=== PATIENT | male | born 1980 | race Caucasian/White ===

== ENCOUNTER 2021-07-23 10:01 | Inpatient (IN) ==
[2021-07-23] MEDS ORDERED: Ipratropium/Albuterol Neb 3 ML IH ONE (10:06)
[2021-07-23] MEDS ORDERED: predniSONE 20 MG TABLET PO ONE (10:36)
[2021-07-23] MEDS ORDERED: Acetaminophen 325 MG TABLET PO ONE (10:36)
[2021-07-23 10:47] LABS: Basophils # 0.1 K/mcL (0.0-0.2); Basophils % 0.6 %; Hemoglobin 14.7 g/dL (12.9-16.9); Immature Granulocytes % 0.5 % (0-4); Lymphocytes # 1.4 K/mcL (0.6-4.6); Lymphocytes % 14.4 %; Mean Corpuscular Hemoglobin 29.4 pg (28.0-33.3); Monocytes # 1.1 K/mcL (0.0-1.3); Monocytes % 10.8 %; Neutrophils # 7.2 K/mcL (1.6-8.9); Platelet Count 227 K/mcL (140-400); Red Cell Distribution Width 13.9 % (11.5-14.5); Segmented Neutrophils % 73.7 %; White Blood Count 9.8 K/mcL (4.3-11.1)
[2021-07-23 11:09] LABS: Alanine Aminotransferase 30 Units/L (7-52); Albumin 3.8 g/dL (3.5-5.7); Albumin/Globulin Ratio 1.2 (1.1-2.2); Alkaline Phosphatase 50 Units/L (34-104); Aspartate Amino Transferase 40 Units/L (13-39); BUN/Creatinine Ratio 13 (6-26); Bilirubin,Direct 0.2 mg/dL (0.0-0.2); Bilirubin,Indirect 0.5 mg/dL (0.0-1.0); Bilirubin,Total 0.7 mg/dL (0.3-1.0); Blood Urea Nitrogen 11 mg/dL (6-20); Calcium 8.3 mg/dL (8.6-10.3); Carbon Dioxide 34 mEq/L (23-29); Chloride 96 mEq/L (98-107); Globulin 3.1 g/dL (2.4-3.5); Glucose 130 mg/dL (70-105); Osmolality,Calculated 281 (280-300); Potassium 3.7 mEq/L (3.5-5.1); Sodium 135 mEq/L (136-145); Total Protein 6.9 g/dL (6.4-8.9); eGFR For African Americans > 60 (> 60); eGFR For Non-African Americans > 60 (> 60)
[2021-07-23 11:10] LABS: VBG HCO3 33 mEq/L (21-27); VBG PCO2 68 mmHg (41-51); VBG PH 7.29 pH Units (7.32-7.42); VBG PO2 83 mmHg (25-50)
[2021-07-23] MEDS: 0.9 % Sodium Chloride 1,000 ML IVC SCH ×2 (11:10→13:14)
[2021-07-23 11:19] LABS: Troponin I 0.16 ng/mL (< 0.04)
[2021-07-23] MEDS ORDERED: *HR* Heparin 5,000 UNIT/ML VIAL IVP ONE (11:23)
[2021-07-23] MEDS ORDERED: Azithromycin 500 MG in 0.9 % Sodium Chloride 250 ML IVPB ONE (11:23)
[2021-07-23] MEDS ORDERED: *HR* Heparin 5,000 UNIT/ML VIAL IVP PRN (11:23)
[2021-07-23] MEDS ORDERED: cefTRIAXone 1,000 MG in 0.9 % Sodium Chloride Mini Bag 100 ML IVPB ONE (11:23)
[2021-07-23] MEDS: Heparin 25,000UNIT/250ML 1/2NS 25,000 UNIT/250 ML IV.SOLN IVC SCH (11:54)
[2021-07-23 11:56] LABS: Influenza A PCR Negative (Negative); Influenza B PCR Negative (Negative); Resp. Syncytial Virus PCR Negative (Negative); SARS-CoV-2 by PCR (In House) Negative (Negative)
[2021-07-23] MEDS ORDERED: Naloxone 0.4 MG/ML INJ IVP PRN (12:56)
[2021-07-23] MEDS ORDERED: *HR* HYDROcodone/Acet 5/325 mg TABLET PO PRN (13:02)
[2021-07-23] MEDS ORDERED: Ondansetron 4 MG/2 ML VIAL IVP PRN (13:02)
[2021-07-23] MEDS ORDERED: *HR* OxyCODONE Immed Rel 5 MG TABLET PO PRN (13:02)
[2021-07-23] MEDS ORDERED: Perflutren Lipid Microsphere 1.3 ML in 0.9 % Sodium Chloride 8.7 ML IVP PRN (13:08)
[2021-07-23] MEDS ORDERED: Ipratropium/Albuterol Neb 3 ML IH PRN (15:52)
[2021-07-23 16:24] LABS: Hematocrit 45.2 % (37.5-50.1); Hemoglobin 14.5 g/dL (12.9-16.9); Mean Corpuscular HGB Conc 32.1 g/dL (31.6-35.5); Mean Corpuscular Hemoglobin 29.7 pg (28.0-33.3); Mean Corpuscular Volume 92.6 fL (83.0-100.0); Mean Platelet Volume 10.2 fL (9.4-12.4); Platelet Count 198 K/mcL (140-400); Red Blood Count 4.88 M/mcL (4.19-5.50); Red Cell Distribution Width 13.8 % (11.5-14.5); White Blood Count 9.6 K/mcL (4.3-11.1)
[2021-07-23 16:32] LABS: Heparin anti-factor XA UFH 0.04 IU/mL (0.30-0.70); INR 1.2; Prothrombin Time 13.7 Seconds (9.4-12.1)
[2021-07-23] MEDS: levoFLOXacin 750 MG/150 ML 750 MG/150 ML BAG IVPB SCH (18:50)
[2021-07-23] MEDS: *HR* Heparin 5,000 UNIT/ML VIAL IVP PRN (23:15)
[2021-07-24 05:53] LABS: Basophils % 0.4 %; Eosinophils % 0.1 %; Hematocrit 45.6 % (37.5-50.1); Immature Granulocytes % 1.2 % (0-4); Lymphocytes # 1.9 K/mcL (0.6-4.6); Lymphocytes % 18.5 %; Mean Corpuscular HGB Conc 30.7 g/dL (31.6-35.5); Mean Corpuscular Hemoglobin 29.2 pg (28.0-33.3); Mean Corpuscular Volume 95.2 fL (83.0-100.0); Mean Platelet Volume 10.5 fL (9.4-12.4); Monocytes # 0.9 K/mcL (0.0-1.3); Monocytes % 8.5 %; Neutrophils # 7.2 K/mcL (1.6-8.9); Platelet Count 235 K/mcL (140-400); Red Blood Count 4.79 M/mcL (4.19-5.50); Red Cell Distribution Width 13.8 % (11.5-14.5); Segmented Neutrophils % 71.3 %; White Blood Count 10.1 K/mcL (4.3-11.1)
[2021-07-24 06:10] LABS: BUN/Creatinine Ratio 13 (6-26); Blood Urea Nitrogen 11 mg/dL (6-20); Calcium 8.5 mg/dL (8.6-10.3); Carbon Dioxide 39 mEq/L (23-29); Chloride 97 mEq/L (98-107); Glucose 111 mg/dL (70-105); Magnesium 2.2 mg/dL (1.6-2.6); Osmolality,Calculated 288 (280-300); Potassium 4.5 mEq/L (3.5-5.1); Sodium 139 mEq/L (136-145); eGFR For African Americans > 60 (> 60); eGFR For Non-African Americans > 60 (> 60)
[2021-07-24] MEDS ORDERED: Furosemide 40 MG/4 ML VIAL IVP ONE (08:16)
[2021-07-24] MEDS: Cholecalciferol (D-3) 1,000 UNIT (25MCG) TABLET PO SCH (08:36)
[2021-07-24] MEDS: ARIPiprazole 10 MG TABLET PO SCH (08:36)
[2021-07-24] MEDS: Metoprolol XL (24 HR) Succ 25 MG TAB.ER.24H PO SCH (08:36)
[2021-07-24] MEDS: hydrOXYzine pamoate 25 MG CAPSULE PO SCH (08:36)
[2021-07-24] MEDS: Acetaminophen 325 MG TABLET PO PRN (08:55)
[2021-07-24] MEDS: Ipratropium/Albuterol Neb 3 ML IH SCH ×4 (10:16→22:34)
[2021-07-24] MEDS: Budesonide Neb 0.5 MG/2 ML IH SCH ×2 (10:30→22:34)
[2021-07-24] MEDS: Heparin 25,000UNIT/250ML 1/2NS 25,000 UNIT/250 ML IV.SOLN IVC SCH ×2 (11:26→22:14)
[2021-07-24 12:02] LABS: Chol/HDL Ratio 3.8 (0-4.9)
[2021-07-24] MEDS: *HR* Heparin 5,000 UNIT/ML VIAL IVP PRN (12:28)
[2021-07-24] MEDS: Aspirin 81 MG TAB.CHEW PO SCH (12:28)
[2021-07-24 13:45] LABS: Adenovirus DETECTED (Not Detect); Bordetella Pertussis Not Detected (Not Detect); Chlamydophila pneumoniae Not Detected (Not Detect); Coronavirus 229E Not Detected (Not Detect); Coronavirus HKU1 Not Detected (Not Detect); Coronavirus NL63 Not Detected (Not Detect); Coronavirus OC43 Not Detected (Not Detect); Human Metapneumovirus Not Detected (Not Detect); Human Rhinovirus/Enterovirus Not Detected (Not Detect); Influenza A Subtype 2009 H1 Not Detected (Not Detect); Influenza B Not Detected (Not Detect); Mycoplasma pneumoniae Not Detected (Not Detect); Parainfluenza Virus 1 Not Detected (Not Detect); Parainfluenza Virus 2 Not Detected (Not Detect); Parainfluenza Virus 3 Not Detected (Not Detect); Parainfluenza Virus 4 Not Detected (Not Detect); Respiratory Syncytial Virus Not Detected (Not Detect); SARS-CoV-2 Not Detected (Not Detect)
[2021-07-24] MEDS: levoFLOXacin 750 MG/150 ML 750 MG/150 ML BAG IVPB SCH (20:09)
[2021-07-25] MEDS ORDERED: *HR* LORazepam 2 MG/ML VIAL IVP ONE (03:34)
[2021-07-25] MEDS ORDERED: Haloperidol Lactate 5 MG/ML VIAL IVP ONE (03:38)
[2021-07-25] MEDS: Ipratropium/Albuterol Neb 3 ML IH SCH ×4 (04:00→22:17)
[2021-07-25 04:10] LABS: Basophils # 0.1 K/mcL (0.0-0.2); Basophils % 0.7 %; Eosinophils % 0.4 %; Hematocrit 44.3 % (37.5-50.1); Hemoglobin 13.5 g/dL (12.9-16.9); Lymphocytes # 2.1 K/mcL (0.6-4.6); Lymphocytes % 28.4 %; Mean Corpuscular HGB Conc 30.5 g/dL (31.6-35.5); Mean Corpuscular Hemoglobin 29.2 pg (28.0-33.3); Mean Corpuscular Volume 95.9 fL (83.0-100.0); Mean Platelet Volume 10.3 fL (9.4-12.4); Monocytes # 0.8 K/mcL (0.0-1.3); Monocytes % 10.7 %; Neutrophils # 4.3 K/mcL (1.6-8.9); Platelet Count 256 K/mcL (140-400); Red Blood Count 4.62 M/mcL (4.19-5.50); Red Cell Distribution Width 14.1 % (11.5-14.5); Segmented Neutrophils % 58.8 %; White Blood Count 7.3 K/mcL (4.3-11.1)
[2021-07-25 04:38] LABS: BUN/Creatinine Ratio 17 (6-26); Blood Urea Nitrogen 13 mg/dL (6-20); Calcium 8.4 mg/dL (8.6-10.3); Carbon Dioxide 40 mEq/L (23-29); Chloride 93 mEq/L (98-107); Glucose 120 mg/dL (70-105); Magnesium 2.2 mg/dL (1.6-2.6); Osmolality,Calculated 285 (280-300); Potassium 4.2 mEq/L (3.5-5.1); Sodium 137 mEq/L (136-145); eGFR For African Americans > 60 (> 60); eGFR For Non-African Americans > 60 (> 60)
[2021-07-25] MEDS: ARIPiprazole 10 MG TABLET PO SCH (07:20)
[2021-07-25] MEDS: hydrOXYzine pamoate 25 MG CAPSULE PO SCH (07:21)
[2021-07-25] MEDS: Cholecalciferol (D-3) 1,000 UNIT (25MCG) TABLET PO SCH (07:21)
[2021-07-25] MEDS: Metoprolol XL (24 HR) Succ 25 MG TAB.ER.24H PO SCH (07:21)
[2021-07-25] MEDS: Aspirin 81 MG TAB.CHEW PO SCH (07:21)
[2021-07-25] MEDS: Acetaminophen 325 MG TABLET PO PRN (07:25)
[2021-07-25] MEDS: Heparin 25,000UNIT/250ML 1/2NS 25,000 UNIT/250 ML IV.SOLN IVC SCH (08:14)
[2021-07-25] MEDS: Furosemide 40 MG/4 ML VIAL IVP SCH (08:18)
[2021-07-25] MEDS: Budesonide Neb 0.5 MG/2 ML IH SCH ×2 (09:44→22:17)
[2021-07-25] MEDS: *HR* Enoxaparin 40 MG/0.4 ML SYRINGE SQ SCH (11:41)
[2021-07-25 12:35] LABS: VBG HCO3 42 mEq/L (21-27); VBG PCO2 96 mmHg (41-51); VBG PH 7.25 pH Units (7.32-7.42); VBG PO2 186 mmHg (25-50)
[2021-07-25] MEDS ORDERED: Dexmedetomidine HCl 400 MCG/100 ML MLS IVC ONE (13:42)
[2021-07-25] MEDS: Dexmedetomidine HCl 400 MCG/100 ML MLS IVC SCH ×2 (13:54→21:47)
[2021-07-25] MEDS: Pantoprazole 40 MG VIAL IVP SCH (15:18)
[2021-07-25] MEDS: levoFLOXacin 750 MG/150 ML 750 MG/150 ML BAG IVPB SCH (17:13)
[2021-07-26] MEDS: Ipratropium/Albuterol Neb 3 ML IH SCH ×4 (04:07→22:24)
[2021-07-26 04:35] LABS: Basophils # 0.1 K/mcL (0.0-0.2); Basophils % 0.7 %; Eosinophils % 0.1 %; Hematocrit 43.7 % (37.5-50.1); Hemoglobin 13.8 g/dL (12.9-16.9); Immature Granulocytes % 0.9 % (0-4); Lymphocytes # 1.9 K/mcL (0.6-4.6); Lymphocytes % 27.2 %; Mean Corpuscular HGB Conc 31.6 g/dL (31.6-35.5); Mean Corpuscular Hemoglobin 29.7 pg (28.0-33.3); Mean Corpuscular Volume 94.2 fL (83.0-100.0); Mean Platelet Volume 10.3 fL (9.4-12.4); Monocytes # 0.6 K/mcL (0.0-1.3); Platelet Count 279 K/mcL (140-400); Red Blood Count 4.64 M/mcL (4.19-5.50); Red Cell Distribution Width 13.5 % (11.5-14.5); Segmented Neutrophils % 62.1 %
[2021-07-26 04:36] LABS: Neutrophils # 4.4 K/mcL (1.6-8.9)
[2021-07-26 04:59] LABS: BUN/Creatinine Ratio 25 (6-26); Blood Urea Nitrogen 21 mg/dL (6-20); Carbon Dioxide 40 mEq/L (23-29); Chloride 93 mEq/L (98-107); Glucose 121 mg/dL (70-105); Magnesium 2.5 mg/dL (1.6-2.6); Osmolality,Calculated 292 (280-300); Potassium 4.8 mEq/L (3.5-5.1); Sodium 139 mEq/L (136-145); eGFR For African Americans > 60 (> 60); eGFR For Non-African Americans > 60 (> 60)
[2021-07-26] MEDS: Metoprolol XL (24 HR) Succ 25 MG TAB.ER.24H PO SCH (08:43)
[2021-07-26] MEDS: ARIPiprazole 10 MG TABLET PO SCH (08:43)
[2021-07-26] MEDS: hydrOXYzine pamoate 25 MG CAPSULE PO SCH (08:44)
[2021-07-26] MEDS: Aspirin 81 MG TAB.CHEW PO SCH (08:44)
[2021-07-26] MEDS: Cholecalciferol (D-3) 1,000 UNIT (25MCG) TABLET PO SCH (08:44)
[2021-07-26] MEDS: Pantoprazole 40 MG VIAL IVP SCH (08:49)
[2021-07-26] MEDS: Furosemide 40 MG/4 ML VIAL IVP SCH (08:51)
[2021-07-26] MEDS: Budesonide Neb 0.5 MG/2 ML IH SCH ×2 (08:58→22:24)
[2021-07-26 09:00] LABS: ABG Base Excess 10 mEq/L (-2 to 3); ABG HCO3 36 mEq/L (21-27); ABG Oxygen Saturation 95 % (95-98); ABG PCO2 57 mmHg (35-45); ABG PH 7.42 pH Units (7.32-7.45); ABG PO2 75 mmHg (85-104); ABG TCO2 38 mEq/L (20-26)
[2021-07-26] MEDS: *HR* Enoxaparin 40 MG/0.4 ML SYRINGE SQ SCH (12:01)
[2021-07-26] MEDS: Dexmedetomidine HCl 400 MCG/100 ML MLS IVC SCH (13:01)
[2021-07-26] MEDS: levoFLOXacin 750 MG/150 ML 750 MG/150 ML BAG IVPB SCH (16:53)
[2021-07-27 03:20] LABS: VBG HCO3 36 mEq/L (21-27); VBG PCO2 52 mmHg (41-51); VBG PH 7.45 pH Units (7.32-7.42); VBG PO2 120 mmHg (25-50)
[2021-07-27 03:27] LABS: Basophils # 0.1 K/mcL (0.0-0.2); Basophils % 0.7 %; Eosinophils % 0.2 %; Hematocrit 40.5 % (37.5-50.1); Hemoglobin 12.9 g/dL (12.9-16.9); Immature Granulocytes % 1.1 % (0-4); Lymphocytes # 2.1 K/mcL (0.6-4.6); Lymphocytes % 20.9 %; Mean Corpuscular HGB Conc 31.9 g/dL (31.6-35.5); Mean Corpuscular Hemoglobin 29.4 pg (28.0-33.3); Mean Corpuscular Volume 92.3 fL (83.0-100.0); Mean Platelet Volume 10.6 fL (9.4-12.4); Monocytes # 0.7 K/mcL (0.0-1.3); Monocytes % 7.1 %; Neutrophils # 6.9 K/mcL (1.6-8.9); Platelet Count 292 K/mcL (140-400); Red Blood Count 4.39 M/mcL (4.19-5.50); Red Cell Distribution Width 13.2 % (11.5-14.5); White Blood Count 9.9 K/mcL (4.3-11.1)
[2021-07-27 03:49] LABS: Platelet Estimate Normal (Normal)
[2021-07-27] MEDS: Ipratropium/Albuterol Neb 3 ML IH SCH ×4 (03:57→22:01)
[2021-07-27 04:06] LABS: BUN/Creatinine Ratio 30 (6-26); Blood Urea Nitrogen 25 mg/dL (6-20); Calcium 8.7 mg/dL (8.6-10.3); Carbon Dioxide 40 mEq/L (23-29); Chloride 95 mEq/L (98-107); Glucose 138 mg/dL (70-105); Magnesium 2.3 mg/dL (1.6-2.6); Osmolality,Calculated 293 (280-300); Sodium 138 mEq/L (136-145); eGFR For African Americans > 60 (> 60); eGFR For Non-African Americans > 60 (> 60)
[2021-07-27] MEDS: Dexmedetomidine HCl 400 MCG/100 ML MLS IVC SCH ×3 (04:24→23:44)
[2021-07-27] MEDS: Cholecalciferol (D-3) 1,000 UNIT (25MCG) TABLET PO SCH (08:06)
[2021-07-27] MEDS: Aspirin 81 MG TAB.CHEW PO SCH (08:06)
[2021-07-27] MEDS: ARIPiprazole 10 MG TABLET PO SCH (08:06)
[2021-07-27] MEDS: hydrOXYzine pamoate 25 MG CAPSULE PO SCH (08:06)
[2021-07-27] MEDS: Furosemide 40 MG/4 ML VIAL IVP SCH (08:07)
[2021-07-27] MEDS: Metoprolol XL (24 HR) Succ 25 MG TAB.ER.24H PO SCH (08:07)
[2021-07-27] MEDS: Pantoprazole 40 MG VIAL IVP SCH (08:07)
[2021-07-27] MEDS: Budesonide Neb 0.5 MG/2 ML IH SCH ×2 (10:49→22:01)
[2021-07-27] MEDS: *HR* Enoxaparin 40 MG/0.4 ML SYRINGE SQ SCH (13:45)
[2021-07-27] MEDS ORDERED: Furosemide 40 MG/4 ML VIAL IVP ONE (16:23)
[2021-07-27] MEDS: levoFLOXacin 750 MG/150 ML 750 MG/150 ML BAG IVPB SCH (16:53)
[2021-07-27] MEDS: Lactulose Oral Soln 20 GM/30 ML UDC PO SCH (20:09)
[2021-07-28] MEDS: Dexmedetomidine HCl 400 MCG/100 ML MLS IVC SCH ×3 (02:20→22:20)
[2021-07-28 02:51] LABS: VBG HCO3 36 mEq/L (21-27); VBG PCO2 53 mmHg (41-51); VBG PH 7.43 pH Units (7.32-7.42); VBG PO2 203 mmHg (25-50)
[2021-07-28 02:59] LABS: Basophils # 0.1 K/mcL (0.0-0.2); Basophils % 0.6 %; Eosinophils # 0.1 K/mcL (0.0-0.6); Eosinophils % 0.6 %; Hematocrit 41.4 % (37.5-50.1); Hemoglobin 13.2 g/dL (12.9-16.9); Immature Granulocytes % 1.4 % (0-4); Lymphocytes % 22.7 %; Mean Corpuscular HGB Conc 31.9 g/dL (31.6-35.5); Mean Corpuscular Hemoglobin 29.4 pg (28.0-33.3); Mean Corpuscular Volume 92.2 fL (83.0-100.0); Mean Platelet Volume 10.3 fL (9.4-12.4); Monocytes # 0.8 K/mcL (0.0-1.3); Monocytes % 8.7 %; Neutrophils # 5.8 K/mcL (1.6-8.9); Platelet Count 295 K/mcL (140-400); Red Blood Count 4.49 M/mcL (4.19-5.50); Red Cell Distribution Width 13.3 % (11.5-14.5); White Blood Count 8.8 K/mcL (4.3-11.1)
[2021-07-28 03:17] LABS: BUN/Creatinine Ratio 27 (6-26); Blood Urea Nitrogen 20 mg/dL (6-20); Calcium 8.5 mg/dL (8.6-10.3); Carbon Dioxide 37 mEq/L (23-29); Chloride 98 mEq/L (98-107); Glucose 162 mg/dL (70-105); Magnesium 2.1 mg/dL (1.6-2.6); Osmolality,Calculated 296 (280-300); Potassium 3.7 mEq/L (3.5-5.1); Sodium 140 mEq/L (136-145); eGFR For African Americans > 60 (> 60); eGFR For Non-African Americans > 60 (> 60)
[2021-07-28] MEDS: Ipratropium/Albuterol Neb 3 ML IH SCH ×4 (03:35→21:47)
[2021-07-28] MEDS: Cholecalciferol (D-3) 1,000 UNIT (25MCG) TABLET PO SCH (08:04)
[2021-07-28] MEDS: Aspirin 81 MG TAB.CHEW PO SCH (08:05)
[2021-07-28] MEDS: Metoprolol XL (24 HR) Succ 25 MG TAB.ER.24H PO SCH (08:05)
[2021-07-28] MEDS: Pantoprazole 40 MG VIAL IVP SCH (08:05)
[2021-07-28] MEDS: Lactulose Oral Soln 20 GM/30 ML UDC PO SCH ×2 (08:05→20:11)
[2021-07-28] MEDS: hydrOXYzine pamoate 25 MG CAPSULE PO SCH (08:05)
[2021-07-28] MEDS: Furosemide 40 MG/4 ML VIAL IVP SCH (08:06)
[2021-07-28] MEDS: ARIPiprazole 10 MG TABLET PO SCH (08:11)
[2021-07-28] MEDS: Budesonide Neb 0.5 MG/2 ML IH SCH ×2 (09:57→21:47)
[2021-07-28] MEDS: *HR* Enoxaparin 40 MG/0.4 ML SYRINGE SQ SCH (11:36)
[2021-07-28] MEDS: levoFLOXacin 750 MG/150 ML 750 MG/150 ML BAG IVPB SCH (16:57)
[2021-07-29] MEDS: Ipratropium/Albuterol Neb 3 ML IH SCH ×2 (04:10→10:29)
[2021-07-29 04:57] LABS: Basophils # 0.1 K/mcL (0.0-0.2); Basophils % 0.7 %; Eosinophils # 0.1 K/mcL (0.0-0.6); Eosinophils % 0.7 %; Hematocrit 43.9 % (37.5-50.1); Hemoglobin 13.6 g/dL (12.9-16.9); Immature Granulocytes % 1.8 % (0-4); Lymphocytes # 2.5 K/mcL (0.6-4.6); Lymphocytes % 23.5 %; Mean Corpuscular Hemoglobin 28.8 pg (28.0-33.3); Mean Platelet Volume 10.4 fL (9.4-12.4); Monocytes # 0.9 K/mcL (0.0-1.3); Monocytes % 8.1 %; Neutrophils # 6.8 K/mcL (1.6-8.9); Platelet Count 312 K/mcL (140-400); Red Blood Count 4.72 M/mcL (4.19-5.50); Red Cell Distribution Width 13.4 % (11.5-14.5); Segmented Neutrophils % 65.2 %; White Blood Count 10.4 K/mcL (4.3-11.1)
[2021-07-29 05:20] LABS: VBG HCO3 36 mEq/L (21-27); VBG PCO2 60 mmHg (41-51); VBG PH 7.39 pH Units (7.32-7.42); VBG PO2 112 mmHg (25-50)
[2021-07-29 06:43] LABS: BUN/Creatinine Ratio 25 (6-26); Blood Urea Nitrogen 18 mg/dL (6-20); Calcium 8.6 mg/dL (8.6-10.3); Carbon Dioxide 37 mEq/L (23-29); Chloride 99 mEq/L (98-107); Glucose 111 mg/dL (70-105); Magnesium 2.3 mg/dL (1.6-2.6); Osmolality,Calculated 295 (280-300); Potassium 4.2 mEq/L (3.5-5.1); Sodium 141 mEq/L (136-145); eGFR For African Americans > 60 (> 60); eGFR For Non-African Americans > 60 (> 60)
[2021-07-29] MEDS ORDERED: dexAMETHasone 4 MG TABLET PO SCH (09:00)
[2021-07-29] MEDS: Lactulose Oral Soln 20 GM/30 ML UDC PO SCH (10:06)
[2021-07-29] MEDS: Furosemide 40 MG/4 ML VIAL IVP SCH (10:07)
[2021-07-29] MEDS: Pantoprazole 40 MG VIAL IVP SCH (10:07)
[2021-07-29] MEDS: ARIPiprazole 10 MG TABLET PO SCH (10:08)
[2021-07-29] MEDS: Aspirin 81 MG TAB.CHEW PO SCH (10:08)
[2021-07-29] MEDS: Metoprolol XL (24 HR) Succ 25 MG TAB.ER.24H PO SCH (10:08)
[2021-07-29] MEDS: Cholecalciferol (D-3) 1,000 UNIT (25MCG) TABLET PO SCH (10:08)
[2021-07-29] MEDS: hydrOXYzine pamoate 25 MG CAPSULE PO SCH (10:09)
[2021-07-29] MEDS: Dexmedetomidine HCl 400 MCG/100 ML MLS IVC SCH (10:16)
[2021-07-29 10:27] VITALS: BP 141/84; PULSE 92; TEMP 97.2; O2SAT 90
[2021-07-29] MEDS: Budesonide Neb 0.5 MG/2 ML IH SCH (10:29)
== END 2021-07-29 14:20 | disposition home health service (06) | DRG 720 ==
LOC: EMEROOARM 10:01 → 3NENU 10:01 → SUATTDRO 12:06 → 3NENU 14:57
PROVIDERS: ADMIT Pharmacist; ATTEND Pharmacist